=== PATIENT | male | born 1980 | race Two or more races ===

== ENCOUNTER 2024-07-14 14:43 | Emergency (ER) | payer BC, OTHER ==
[~2024-07-14] VITALS: Ht 177.8 cm; Wt 104.3 kg
[2024-07-14 14:52] VITALS: BP 162/100; TEMP 98.8; O2SAT 96
== END 2024-07-14 16:04 | disposition home or self-care (01) ==
LOC: ER 15:00
DX: I10 Essential (primary) hypertension (principal)